=== PATIENT | female | born 1995 | race Caucasian/White ===

== ENCOUNTER 2017-12-06 22:57 | Inpatient (IN) | payer BC ==
[~2017-12-06] VITALS: Ht 160 cm; Wt 86.1 kg
[~2017-12-06 22:57] MED LIST: FLUTICASONE PRO16 GM; KEPPRA500 MG PO; LAMICTAL200 MG PO; LOESTRIN 241 TABLET PO
[2017-12-06] MEDS ORDERED: LAMICTAL200 MG PO (23:36)
[2017-12-06] MEDS ORDERED: FOLIC ACID1 MG PO (23:38)
[2017-12-07] VITALS (9 sets, daily range): BP systolic 115–131; BP diastolic 59–73
[2017-12-07 00:10] LABS: BASOPHIL (%) 0.1 % (0-1); EOSINOPHIL (%) 0.1 % (0-5); HEMATOCRIT 40.8 % (36.0-46.0); HEMOGLOBIN 14.7 G/DL (11.9-15.5); IMMATURE GRANULOCYTE (%) 0.8 % (0.0-0.7); LYMPHOCYTE (%) 8.3 % (15-42); LYMPHOCYTE COUNT 1.9 K/uL (1.0-2.8); MCH 30.8 PG (29.0-34.0); MCV 85.5 FL (83-99); MONOCYTE COUNT 1.6 K/uL (0-0.8); NEUTROPHIL (%) 83.7 % (45-76); NEUTROPHIL COUNT 18.6 K/uL (1.8-6.4); PLATELET COUNT 209 K/uL (156-360); RBC DIS.WIDTH-CV 12.8 % (11.8-14.6); RBC DIS.WIDTH-SD 39.3 % (39-53); RED BLOOD COUNT 4.77 M/uL (3.80-5.20); WHITE BLOOD COUNT 22.3 K/uL (4.1-10.2)
[2017-12-07] MEDS ORDERED: IBUPROFEN800 MG PO (01:57)
== END 2017-12-08 14:45 | disposition home or self-care (01) | DRG 775 ==
LOC: LDRP-OP 22:57 → 2WEST 22:58 → LDRP-OP 01-12 03:51
PROVIDERS: Midwife
PROC: 10E0XZZ Delivery of Products of Conception, External Approach (ICD-10-PCS; principal; 2017-12-07)
PROC: 10907ZC Drainage of Amniotic Fluid, Therapeutic from Products of Conception, Via Natural or Artificial Opening (ICD-10-PCS; 2017-12-07)
PROC: 0HQ9XZZ Repair Perineum Skin, External Approach (ICD-10-PCS; 2017-12-07)
DX: O99.354 Diseases of the nervous system complicating childbirth (principal); O26.873 Cervical shortening, third trimester; G40.909 Epilepsy, unspecified, not intractable, without status epilepticus; Z37.0 Single live birth; Z3A.38 38 weeks gestation of pregnancy; G43.909 Migraine, unspecified, not intractable, without status migrainosus; M54.9 Dorsalgia, unspecified; O69.1XX1 Labor and delivery complicated by cord around neck, with compression, fetus 1; O70.0 First degree perineal laceration during delivery; O26.893 Other specified pregnancy related conditions, third trimester
CPT/HCPCS: 85025; G0378; J7120